=== PATIENT | female | born 1935 | race Two or more races ===

== ENCOUNTER 2019-06-16 10:54 | Emergency (ER) | payer MEDICARE, OTHER ==
[2019-06-16 11:00] VITALS: BP 113/77
[2019-06-16] MEDS ORDERED: BACITRACIN OINT TOP STA (11:30)
--- NOTE | 2019-06-16 11:39 | ED Physician Documentation ---
History of Present Illness - Stated complaint Stated Complaint: WOUND CHECK L LEG - Chief complaint Chief Complaint: Ext Problem - History obtained from History obtained from: Patient - History of Present Illness Timing: How many weeks ago (1) Pain level max: 1 Pain level now: 1 - Additonal information Additional information: 83-year-old female with a wound to the left anterior tibia for the past week. She states that she would like it checked as it is not healing. Nothing makes it better or worse. No fevers. No drainage. Review of Systems Constitutional: denies: Fever, Chills Musculoskeletal: denies: Neck pain, Back pain Neurologic: denies: Headache PD PAST MEDICAL HISTORY - Past Medical History Past Medical History: No - Past Surgical History Past Surgical History: No - Present Medications Home Medications: Ambulatory Orders Medication Instructions Recorded Confirmed Bacitracin Zinc Oint 1 applic TOP BID #1 tube 06/16/19 - Allergies Allergies/Adverse Reactions: Allergies Allergy/AdvReac Type Severity Reaction Status Date / Time codeine AdvReac Nausea Verified 06/16/19 10:59 - Living Situation Living Situation: reports: With family Living Arrangement: reports: At home - Social History Does the pt smoke?: No Smoking Status: Never smoker - Family History Family history: reports: Non contributory - Immunizations Immunizations are current?: Yes Immunizations: TDAP current <10years PD ED PE NORMAL - Vitals Vital signs reviewed: Yes - General General: Alert and oriented X 3, No acute distress - Derm Derm: Warm and dry - Extremities Extremities: Other (Abrasion to the lower left anterior tibia. Mild erythema. To open areas. Both are approximately 2 cm in diameter.) - Neuro Neuro: Alert and oriented X 3 Results - Vitals Vitals: Vital Signs - 24 hr 06/16/19 10:55 Temperature 36.2 C L Heart Rate 84 Respiratory 18 Rate Blood Pressure 113/77 O2 Saturation 98 Oxygen O2 Source Room air PD MEDICAL DECISION MAKING - ED course Complexity details: considered differential, d/w patient ED course: Patient with 2 abrasions to the left lower anterior tibia. Mepitel placed over these. Bacitracin applied. Warnings of infection and instructions on wound care given at bedside. Also counseled on how to minimize scarring. No evidence for oral antibiotics at this time. Tetanus up-to-date. Patient counseled that she may need wound care. Patient counseled regarding signs and symptoms for which I believe and urgent re-evaluation would be necessary. Patient with good understanding of and agreement to plan and is comfortable going home at this time This document was made in part using voice recognition software. While efforts are made to proofread this document, sound alike and grammatical errors may occur. Departure - Departure Disposition: 01 Home, Self Care Clinical Impression: Abrasion, left lower leg, initial encounter Condition: Good Instructions: ED Abrasion Follow-Up: Asher Tidwell MD [Primary Care Provider] - Within 1 week Prescriptions: Bacitracin Zinc Oint 1 applic TOP BID #1 tube Comments: Follow-up with your doctor within 1 week for a wound check. Leave the Mepitel in place for 10 to 14 days. You can change the outer dressing. You may need wound care for this wound as these are slow to heal wounds. If that is the case, your doctor can send referral to the [facility]. Return if you notice redness, swelling or drainage from the wound Discharge Date/Time: 06/16/19 11:54
== END 2019-06-16 11:54 | disposition home or self-care (01) ==
LOC: ED 10:54
DX: S80.812A Abrasion, left lower leg, initial encounter (principal); W19.XXXA Unspecified fall, initial encounter
CPT/HCPCS: 99282; 99283; A9270

== ENCOUNTER 2024-03-23 08:00 | Outpatient (CLI) | payer MEDICARE, BC ==
--- NOTE | 2024-03-23 22:20 | XRAY Report ---
Tib/Fib LT HISTORY: 88 years of age, LEFT LOWER LEG LACERATION TECHNIQUE: Tib/Fib LT COMPARISON: None. FINDINGS/IMPRESSION: Status post ACL reconstruction. Mild soft tissue irregularity in the anterior lateral mid leg, likely representing patient's reported soft tissue laceration. No radiopaque foreign body. No acute fracture or dislocation. Reviewed by: Anita Lugo MD on 03/23/2024 10:19 PM PDT Approved by: Anita Lugo MD on 03/23/2024 10:19 PM PDT Station ID: [id number]
== END 2024-03-23 23:59 | disposition home or self-care (01) ==
LOC: DI.S 08:00
PROVIDERS: ATTEND Emergency Medicine
DX: S81.812A Laceration without foreign body, left lower leg, initial encounter (principal)

== ENCOUNTER 2024-05-31 06:43 | Outpatient (CLI) | payer MEDICARE, BC | END 2024-05-31 06:44 | disposition critical access hospital (66) | LOC: EMS 06:43 | DX: S01.01XA Laceration without foreign body of scalp, initial encounter (principal); W18.30XA Fall on same level, unspecified, initial encounter; Y93.01 Activity, walking, marching and hiking; Y92.000 Kitchen of unspecified non-institutional (private) residence as the place of occurrence of the external cause; R51.9 Headache, unspecified; R25.2 Cramp and spasm; R42 Dizziness and giddiness; R11.0 Nausea | CPT/HCPCS: A0425; A0427 ==

== ENCOUNTER 2024-05-31 07:18 | Emergency (ER) | payer MEDICARE, BC ==
--- NOTE | 2024-05-31 07:37 | ED Physician Documentation ---
History of Present Illness - Stated complaint Stated Complaint: GLF - History obtained from History obtained from: Patient, Family, EMS - Additonal information Additional information: The patient comes to the emergency department with chief complaint of ground- level fall and head injury. She states that she was feeling bit lightheaded since yesterday and actually fainted briefly at home yesterday and had to have her [id number] and grandson help her up. The patient states that she felt more or less fine for the rest of the day but then this morning, got up to go to the bathroom, and felt a little nauseated. She states her left knee chronically causes her some pain and so she was trying to walk it off. She is not sure exactly what happened but she thinks that her knee collapsed, which has been known to do before. She fell to the floor and does not know if she lost consciousness or not. She hit the back of her head and medics report that she has a laceration back there. The patient is also complaining of some pain and what seems to be her bilateral trapezius distribution, but because it involved her neck, a c-collar was placed. The patient states she drinks about 2 cups of water per day. She denies any vomiting. She has had some loose stools but not watery diarrhea. No fevers or chills. No respiratory symptoms. No chest pain. No other complaints at this time. PD PAST MEDICAL HISTORY - Past Surgical History Past Surgical History: No - Present Medications Home Medications: Ambulatory Orders Medication Instructions Recorded Confirmed Memantine HCl 10 mg PO DAILY 05/31/24 05/31/24 Metoprolol Succinate [Toprol Xl] 25 mg PO DAILY 05/31/24 05/31/24 Omeprazole 20 mg PO DAILY 05/31/24 05/31/24 Rosuvastatin Calcium 5 mg PO DAILY 05/31/24 05/31/24 methocarbamoL [Methocarbamol] 500 mg PO TID 05/31/24 05/31/24 - Allergies Allergies/Adverse Reactions: Allergies Allergy/AdvReac Type Severity Reaction Status Date / Time codeine AdvReac Nausea Verified 05/31/24 07:47 - Social History Does the pt smoke?: No Smoking Status: Never smoker - Immunizations Immunizations are current?: Yes Immunizations: TDAP current <10years PD ED PE NORMAL - Vitals Vital signs reviewed: Yes - General General: Alert and oriented X 3, No acute distress, Well developed/nourished - HEENT HEENT: PERRL, EOMI, Moist mucous membranes, Other (3 cm posterior scalp laceration, linear, bleeding controlled.) - Neck Neck: No bony TTP, Other (Tenderness palpation over bilateral trapezius distribution. Patient is in c-collar.) - Cardiac Cardiac: RRR, No murmur - Respiratory Respiratory: No respiratory distress, Clear bilaterally - Abdomen Abdomen: Soft, Non tender, Non distended - Back Back: No spinal TTP - Derm Derm: Normal color, Warm and dry, No rash - Extremities Extremities: No deformity, No tenderness to palpate, Normal ROM s pain (Except for left knee she exhibits mild pain with range of motion. No pain at rest. No tenderness.), No edema - Neuro Neuro: No motor deficit, No sensory deficit, Normal speech, Other (Alert, appropriate.) - Psych Psych: Normal mood, Normal affect Results - Vitals Vitals: Vital Signs - 24 hr 05/31/24 07:38 Temperature 36.2 C L Heart Rate 78 Respiratory 20 Rate Blood Pressure 130/62 O2 Saturation 99 Oxygen O2 Source Room air - Labs Labs: Laboratory Tests 05/31/24 05/31/24 05/31/24 07:46 07:51 07:51 WBC 6.2 RBC 3.74 L Hgb 11.5 L Hct 34.7 L MCV 92.8 MCH 30.7 MCHC 33.1 RDW 13.9 Plt Count 262 MPV 9.4 Neut # (Auto) 4.3 Lymph # (Auto) 1.4 L [place] # (Auto) 0.4 Eos # (Auto) 0.1 Baso # (Auto) 0.0 Absolute Nucleated RBC 0.00 Nucleated RBC % 0.0 Sodium 135 Potassium 4.1 Chloride 103 Carbon Dioxide 21 Anion Gap 11.0 BUN 23 H Creatinine 0.9 Estimated GFR (MDRD) 59 L Glucose 116 H Calcium 10.1 Total Bilirubin 0.4 AST 20 ALT 8 L Alkaline Phosphatase 80 Total Protein 6.9 Albumin 4.0 Globulin 2.9 Albumin/Globulin Ratio 1.4 Lipase 174 H Urine Color YELLOW Urine Clarity CLEAR Urine pH 8.0 H Ur Specific [place] 1.015 Urine Protein NEGATIVE Urine Glucose (UA) NEGATIVE Urine Ketones NEGATIVE Urine Occult Blood TRACE-INTA Urine Nitrite NEGATIVE Urine Bilirubin NEGATIVE Urine Urobilinogen 0.2 (NORMAL) Ur Leukocyte Esterase NEGATIVE Ur Microscopic Review NOT INDICATED Urine Culture Comments NOT INDICATED - Rads (name of study) CT head Relevant Findings:: Final report received, See rad report (Negative) CT C-spine Relevant Findings:: Final report received, See rad report (Negative) Procedures - Laceration (location) Scalp Length in cm: 4 Wound type: Linear, Into subcut fat, Clean Neurovascular status: Sensory intact, Motor intact, Vascular intact Anesthesia: Lidocaine 1% Wound preparation: Hibiclens, Irrigated copiously NS, Wound explored, To the base Skin layer closure: [place] (12) Other: Patient tolerated well, No complications, Neurovascular intact, Dressing applied, Tetanus UTD PD Medical Decision Making - ED course Complexity details: reviewed results, re-evaluated patient, considered differential, d/w patient, d/w family ED course: The patient was worked up with labs, EKG, and CTs of the head and neck. She was given IV fluids and had received Zofran 4 mg en-route. Departure - Departure Disposition: 01 Home, Self Care Clinical Impression: Dehydration Closed head injury Qualifiers: Encounter type: initial encounter Qualified Code(s): S09.90XA - Unspecified injury of head, initial encounter Episode of syncope Qualifiers: Syncope type: unspecified Qualified Code(s): R55 - Syncope and collapse Scalp laceration Qualifiers: Encounter type: initial encounter Qualified Code(s): S01.01XA - Laceration without foreign body of scalp, initial encounter Condition: Stable Instructions: ED Dehydration, ED Head Injury Closed, ED Laceration Scalp Stitch Or Stap, ED Syncope Vasovagal Comments: Your labs, urinalysis, and CT's all look good. You were most likely dehydrated today, as it does not sound like you have been drinking enough water on a regular basis. It is important that you drink 8 to 10 cups of water each day in order to stay adequately hydrated. You have been rehydrated with a liter of normal saline while you have been in the emergency department. Your heart rate has looked good and your blood pressure has fluctuated within a fairly normal range for your age and size. It is not unusual for smaller women, especially of older age, to have occasional mildly decreased blood pressure readings. As long as you are feeling well, have been hydrated, and everything else is reassuring, this is not a worrisome thing in and of itself. If your blood p ressure is chronically running low and you are on blood pressure medications, however, it may be an indication that you need to have your doses decreased, and you should talk to your primary doctor about this. Please call to make a follow-up appointment with your primary. They may call our emergency department at [phone] if they would like to have your records from this visit faxed to them. As far as your wound, as we have discussed, you may allow water and soap to run over the wound but please do not rub, scrub, or immerse the wound or attempt to wash it directly, until the daysi are removed. This is to minimize theoretical risk of infection. In general, these wounds have an extremely low incidence of infection and as such, we do not give antibiotics routinely. You may apply an antibiotic ointment such as Neosporin each day until the wound has formed a solid scab. The daysi should be left in place for about 10 days. At that time, you should see a medical professional, whether at your primary doctor's office, the walk-in clinic, or here at the emergency department, for wound recheck and probable staple removal at that time. Do not try to remove the daysi yourself, as we do have a special tool that does this easily and without further trauma to your tissues. If you begin to notice redness or swelling spreading progressively away from the wound, or if it develops a section that is not healing and appears to have some goopy, pus-like drainage, please have it rechecked.
[2024-05-31 08:00] LABS: BASOPHILS % (AUTO) 0.3 %; EOSINOPHILS # (AUTO) 0.1 10^3/uL (0.0-0.7); HCT - HEMATOCRIT 34.7 % (37.0-47.0); HGB - HEMOGLOBIN 11.5 g/dL (12.0-16.0); LYMPHOCYTES # (AUTO) 1.4 10^3/uL (1.5-3.5); LYMPHOCYTES % (AUTO) 21.9 %; MEAN CORPUSCULAR HEMOGLOBIN 30.7 pg (27.0-31.0); MEAN CORPUSCULAR HGB CONC 33.1 g/dL (32.0-36.0); MEAN CORPUSCULAR VOLUME 92.8 fL (81.0-99.0); MEAN PLATELET VOLUME 9.4 fL (7.9-10.8); MONOCYTES # (AUTO) 0.4 10^3/uL (0.0-1.0); MONOCYTES % (AUTO) 6.9 %; NEUTROPHILS # (AUTO) 4.3 10^3/uL (1.5-6.6); NEUTROPHILS % (AUTO) 69.4 %; PLT - PLATELET COUNT 262 10^3/uL (130-450); RED BLOOD COUNT 3.74 10^6/uL (4.20-5.40); RED CELL DISTRIBUTION WIDTH 13.9 % (12.0-15.0); WHITE BLOOD COUNT 6.2 x10^3/uL (4.8-10.8)
[2024-05-31] MEDS: SODIUM CHLORIDE 0.9% 1,000 ML IV STA (08:04)
[2024-05-31 08:13] LABS: ALBUMIN/GLOBULIN RATIO 1.4 (1.0-2.2); BILIRUBIN,TOTAL 0.4 mg/dL (0.2-1.0); CALCIUM 10.1 mg/dL (8.5-10.3); CREATININE 0.9 mg/dL (0.6-1.3); POTASSIUM 4.1 mmol/L (3.5-4.5); TOTAL PROTEIN 6.9 g/dL (6.4-8.9)
--- NOTE | 2024-05-31 08:22 | CT Report ---
PROCEDURE: Head WO INDICATIONS: fall/head injury TECHNIQUE: Noncontrast 4.5 mm thick angled axial sections acquired from the foramen magnum to the vertex. For r adiation dose reduction, the following was used: automated exposure control, adjustment of mA and/or kV according to patient size. COMPARISON: None. FINDINGS: Image quality: Excellent. CSF spaces: Basal cisterns are patent. No extra-axial fluid collections. Ventricles are normal in size and shape. Brain: No midline shift. No intracranial masses or hemorrhage. Tan-white matter interface is norm al. Intracranial carotid calcifications. Age-related volume loss and small vessel ischemic change. Skull and face: Calvarium and visualized facial bones are intact, without suspicious lesions. Sinuses: Visualized sinuses and mastoids are clear. IMPRESSION: No acute intracranial pathology. Reviewed by: Jeffrey Herrera MD on 05/31/2024 8:21 AM PDT Approved by: Jeffrey Herrera MD on 05/31/2024 8:21 AM PDT Station ID: [id number]
--- NOTE | 2024-05-31 08:28 | CT Report ---
PROCEDURE: Cervical Spine WO INDICATIONS: fall/head strike/bilat neck pain TECHNIQUE: Noncontrast 3 mm thick sections acquired from the skull base to the T4 level. Sagittal and coronal r eformats were then constructed. For radiation dose reduction, the following was used: automated exp osure control, adjustment of mA and/or kV according to patient size. COMPARISON: None. FINDINGS: Image quality: Excellent. Bones: No fractures or dislocations. Visualized superior ribs are intact. Severe cervical spondylo sis. Multilevel facet arthropathy. Multilevel uncovertebral joint hypertrophy. Multilevel foraminal n arrowing. Soft tissues: Prevertebral soft tissues are normal in thickness. No paravertebral hematomas. No ap ical pneumothoraces. IMPRESSION: 1. No acute cervical fracture or dislocation. 2. Cervical spondylosis. Reviewed by: Jeffrey Herrera MD on 05/31/2024 8:26 AM PDT Approved by: Jeffrey Herrera MD on 05/31/2024 8:26 AM PDT Station ID: [id number]
[2024-05-31 09:15] LABS: BILIRUBIN,URINE NEGATIVE (NEGATIVE); GLUCOSE, URINE (UA) NEGATIVE (NEGATIVE); KETONES,URINE (UA) NEGATIVE (NEGATIVE); LEUKOCYTE ESTERASE, URINE NEGATIVE (NEGATIVE); NITRITE,URINE NEGATIVE (NEGATIVE); OCCULT BLOOD,URINE TRACE-INTA (NEGATIVE); PROTEIN,URINE NEGATIVE (NEGATIVE); UROBILINOGEN,URINE 0.2 (NORMAL) E.U./dL (NORMAL)
[2024-05-31 09:18] LABS: CLARITY,URINE CLEAR (CLEAR)
[2024-05-31] MEDS: lidocaine 1% 20 ML MDV SUBQ ONE (09:31)
[2024-05-31] MEDS: ACETAMINOPHEN 325 MG TABLET PO STA (10:13)
[2024-05-31] MEDS: BACITRACIN ZINC OINT 1 PACKET TOP STA (10:13)
[2024-05-31] MEDS ORDERED: ONDANSETRON 4 MG/2 ML VIAL ONE (10:26)
[2024-05-31] MEDS: ONDANSETRON 4 MG/2 ML VIAL IVP STA (10:27)
[2024-05-31 11:44] VITALS: BP 116/47; O2SAT 100
[2024-05-31] MEDS: ONDANSETRON ODT 4 MG TABLET TL STA (12:33)
== END 2024-05-31 10:37 | disposition home or self-care (01) ==
LOC: ED 07:18
DX: E86.0 Dehydration (principal); S09.90XA Unspecified injury of head, initial encounter; S01.01XA Laceration without foreign body of scalp, initial encounter; W18.30XA Fall on same level, unspecified, initial encounter; R55 Syncope and collapse; I10 Essential (primary) hypertension
CPT/HCPCS: 12002; 36415; 70450; 72125; 80053; 81003; 83690; 85025; 96374; 99284; A9270; 81001; 87086

== ENCOUNTER 2024-06-07 13:28 | Emergency (ER) | payer MEDICARE, BC ==
[2024-06-07 14:04] LABS: BASOPHILS % (AUTO) 0.5 %; EOSINOPHILS # (AUTO) 0.1 10^3/uL (0.0-0.7); EOSINOPHILS % (AUTO) 1.7 %; HCT - HEMATOCRIT 38.9 % (37.0-47.0); HGB - HEMOGLOBIN 12.3 g/dL (12.0-16.0); LYMPHOCYTES # (AUTO) 2.2 10^3/uL (1.5-3.5); LYMPHOCYTES % (AUTO) 27.4 %; MEAN CORPUSCULAR HEMOGLOBIN 30.1 pg (27.0-31.0); MEAN CORPUSCULAR HGB CONC 31.6 g/dL (32.0-36.0); MEAN CORPUSCULAR VOLUME 95.3 fL (81.0-99.0); MEAN PLATELET VOLUME 9.2 fL (7.9-10.8); MONOCYTES # (AUTO) 0.7 10^3/uL (0.0-1.0); MONOCYTES % (AUTO) 8.5 %; NEUTROPHILS % (AUTO) 61.5 %; PLT - PLATELET COUNT 323 10^3/uL (130-450); RED BLOOD COUNT 4.08 10^6/uL (4.20-5.40); RED CELL DISTRIBUTION WIDTH 13.8 % (12.0-15.0); WHITE BLOOD COUNT 8.2 x10^3/uL (4.8-10.8)
[2024-06-07 14:20] LABS: ALBUMIN 4.4 g/dL (3.2-5.5); ALBUMIN/GLOBULIN RATIO 1.4 (1.0-2.2); BILIRUBIN,TOTAL 0.5 mg/dL (0.2-1.0); CREATININE 0.8 mg/dL (0.6-1.3); POTASSIUM 3.9 mmol/L (3.5-4.5); TOTAL PROTEIN 7.6 g/dL (6.4-8.9)
[2024-06-07 14:26] LABS: TROPONIN I HIGH SENSITIVITY 7.7 ng/L (2.3-14.8)
--- NOTE | 2024-06-07 15:52 | ED Physician Documentation ---
PD HPI SYNCOPE - Stated complaint Stated Complaint: LIGHTHEADED - Chief complaint Chief Complaint: Neuro - History obtained from History obtained from: Patient - History of Present Illness Timing - onset: How many weeks ago (1) Preceding symptoms: Headache, Light headed. No: Vision changes Associated symptoms: Other (some headache regularly since injury. Some nausea at times.) Contributing factors: Just stood up (she has had lightheaded feeling and slight off balance when standing and walking since head injury on May 31 a week ago.), Exertion, Other Review of Systems Constitutional: denies: Fever, Chills Eyes: denies: Loss of vision, Decreased vision Nose: denies: Rhinorrhea / runny nose, Congestion Throat: denies: Sore throat Respiratory: denies: Cough PD PAST MEDICAL HISTORY - Past Medical History Past Medical History: No Cardiovascular: None Respiratory: None Neuro: None Endocrine/Autoimmune: None GI: None ADVERTISING CAMPAIGN MANAGER: None : None HEENT: None Psych: None Musculoskeletal: None Derm: None - Past Surgical History Past Surgical History: Yes - Present Medications Home Medications: Ambulatory Orders Medication Instructions Recorded Confirmed Memantine HCl 10 mg PO DAILY 05/31/24 06/07/24 Metoprolol Succinate [Toprol Xl] 25 mg PO DAILY 05/31/24 06/07/24 Omeprazole 20 mg PO DAILY 05/31/24 06/07/24 Rosuvastatin Calcium 5 mg PO DAILY 05/31/24 06/07/24 methocarbamoL [Methocarbamol] 500 mg PO TID 05/31/24 06/07/24 - Allergies Allergies/Adverse Reactions: Allergies Allergy/AdvReac Type Severity Reaction Status Date / Time bee venom protein (honey bee) Allergy Anaphylaxis Verified 06/07/24 13:42 - Social History Does the pt smoke?: No Smoking Status: Never smoker Does the pt have substance abuse?: No - Immunizations Immunizations are current?: Yes Immunizations: TDAP current <10years - POLST Patient has POLST: No PD ED PE NORMAL - Vitals Vital signs reviewed: Yes - General General: Alert and oriented X 3, Well developed/nourished - HEENT HEENT: PERRL, EOMI, Ears normal, Pharynx benign - Neck Neck: Supple, no meningeal sign, No adenopathy, No bruit - Cardiac Cardiac: No murmur. No: RRR (fairly regular with occ extra beats and pauses. ) - Respiratory Respiratory: Clear bilaterally Results - Vitals Vitals: Oxygen O2 Source Room air - EKG (time done) 13:48 EKG releavant findings:: EKG personally interpreted by author of this note. Relevant findings are: Rate: Rate (enter#) (83) Rhythm: NSR, Other (frequent PACs) [place]: Normal Intervals: Normal ID QRS: Normal Ischemia: Normal ST segments - Labs Labs: Laboratory Tests 06/07/24 06/07/24 13:58 13:58 WBC 8.2 RBC 4.08 L Hgb 12.3 Hct 38.9 MCV 95.3 MCH 30.1 MCHC 31.6 L RDW 13.8 Plt Count 323 MPV 9.2 Neut # (Auto) 5.0 Lymph # (Auto) 2.2 Lee # (Auto) 0.7 Eos # (Auto) 0.1 Baso # (Auto) 0.0 Absolute Nucleated RBC 0.00 Nucleated RBC % 0.0 Sodium 138 Potassium 3.9 Chloride 105 Carbon Dioxide 26 Anion Gap 7.0 BUN 17 Creatinine 0.8 Estimated GFR (MDRD) 68 L Glucose 104 Calcium 10.0 Total Bilirubin 0.5 AST 19 ALT 9 L Alkaline Phosphatase 63 Troponin I High Sens 7.7 Total Protein 7.6 Albumin 4.4 Globulin 3.2 Albumin/Globulin Ratio 1.4 Lipase 50 - Rads (name of study) head CT Relevant Findings:: Prelim report reviewed (no ICH nor acute process. ), EMP independent interpretation of test PD Medical Decision Making - ED course Complexity details: reviewed results (basic labs area good without anemia, low sodium or other lytes off. Head CT was okay. Presume concussion symptoms. ), considered differential (she has had lightheadedness, not distinct vertigo, along with some headache and feeling slow processing since fall injury 1 week ago when struck head. Had CT at the time that was neg. However sxs started day after. Consider delayed ICH vs concussion, vs metabolic. ), d/w patient Departure - Departure Disposition: 01 Home, Self Care Clinical Impression: Postural lightheadedness, Sleep pattern disturbance, Removal of daysi, Mild concussion Condition: Stable Record reviewed to determine appropriate education?: Yes Instructions: ED Concussion Follow-Up: Chaka Gutierrez MD [Primary Care Provider] - Comments: Your head CT scan is normal. No signs of delayed bleeding or subdural. Your basic blood tests are good as well with normal blood count and electrolytes and blood sugar. Your symptoms of difficulty with the sleep disturbance and pattern as well as the lightheadedness with getting up and feeling slightly off that have started since your injury sound consistent with mild concussive symptoms. Most commonly this will last just a few days to a week or so but sometimes can last for several weeks. Would be uncommon to last much beyond that. Stay well-hydrated. Continue usual medicines. As far as the lightheadedness, get up slowly and sat for a minute before getting up to help adjust your position sense. Follow-up with your primary if not improved over the next week or so and return to the ER if worsening or new symptoms develop. Forms: PCP List Discharge Date/Time: 06/07/24 19:17
[2024-06-07] MEDS: SODIUM CHLORIDE 0.9% 1,000 ML IV STA (16:24)
--- NOTE | 2024-06-07 17:47 | CT Report ---
PROCEDURE: Head WO INDICATIONS: lightheaded standing; [facility] May 31. TECHNIQUE: Noncontrast 4.5 mm thick angled axial sections acquired from the foramen magnum to the vertex. For r adiation dose reduction, the following was used: automated exposure control, adjustment of mA and/or kV according to patient size. COMPARISON: 05/31/2024. FINDINGS: Image quality: Excellent. CSF spaces: Basal cisterns are patent. No extra-axial fluid collections. Ventricles are normal in size and shape. Brain: No midline shift. No intracranial masses or hemorrhage. Age-related global volume loss and chronic microvascular ischemic changes. Intracranial atherosclerotic vascular calcifications. Tan-w jose matter interface is normal. Skull and face: Calvarium and visualized facial bones are intact, without suspicious lesions. Bilat eral lens replacements. The orbits are otherwise normal in appearance. Surgical daysi along the pos terior scalp. Sinuses: Visualized sinuses and mastoids are clear. IMPRESSION: No cause for patient's symptoms is identified. No acute intracranial pathology. Reviewed by: Kenny Javed MD on 06/07/2024 5:46 PM PDT Approved by: Kenny Javed MD on 06/07/2024 5:46 PM PDT Station ID: [id number]
[2024-06-07 19:18] VITALS: BP 164/72; O2SAT 98
== END 2024-06-07 19:17 | disposition home or self-care (01) ==
LOC: ED 13:28
DX: S06.0XAA Concussion with loss of consciousness status unknown, initial encounter (principal); X58.XXXA Exposure to other specified factors, initial encounter
CPT/HCPCS: 36415; 80053; 83690; 84484; 85025; 93005; 99283; 99284